=== PATIENT | female | born 1965 | race Caucasian/White ===

== ENCOUNTER 2017-02-13 08:28 | Emergency (ER) | payer OTHER ==
[~2017-02-13] VITALS: Ht 162.6 cm; Wt 92.7 kg
[~2017-02-13 08:28] MED LIST: ALBU18HF INH; ALBU2.5V4 IH; APRE30TA2 PO; AZU500 PO; ESOM20CA28 PO; ESOM20CA39 PO; GABA800T2 PO; HYDR-3091 PO; IPRA3AMP IH; KEN25CR EXT; LISI2.5T PO; LORA2TAB PO; MAGN500T PO; METF-495 PO; NABU500T PO; PRAV40TA PO; PRE10 PO; SYMINH INHALATION; VENL75TA87 PO; medical marijuana
[2017-02-13 08:32] VITALS: BP 123/76; PULSE 71; RESP 18; O2SAT 96
--- NOTE | 2017-02-13 08:37 | ED.REPORT ---
HPI-General Illness Date of Service Feb 13, 2017 ED Provider: Avelino Araujo MD Pt is a 51 year old female who presents to the ED with concerns for an abnormal hard lump in her left forearm that she began to notice yesterday. She reports that she noticed some swelling in her arm as well, and is worried about a possible blood clot. Pt states that her mother has a history of blood clots the patient denies any personal history thereof. She denies any chest pain, shortness of breath, numbness, weakness or tingling. She thinks she may have had some bug bites in the area. She states that "I just want someone to take a look at it and only if it looks like a blood clot". Nursing Notes Stated Complaint: POSS BLOOD CLOTS IN LEFT ARM Chief Complaint: Extremity Trauma Nursing Notes Reviewed: Yes Allergies: Coded Allergies: ketamine (Verified Allergy, Severe, 06/24/15) Scheduled Apremilast (Otezla) 30 Mg Tablet 30 MG PO BID Budesonide/Formoterol 160-4.5 mcg Inh (Symbicort 160-4.5 mcg Inh) 120 Puff Inhaler 2 PUFF INHALATION BID Esomeprazole Magnesium (Nexium) 20 Mg Capsule.dr 20 MG PO DAILY Esomeprazole Magnesium (Esomeprazole Magnesium) 20 Mg Capsule.dr 22.3 MG PO DAILY Gabapentin (Gabapentin) 800 Mg Tablet 800 MG PO BID Lisinopril (Lisinopril) 2.5 Mg Tablet 2.5 MG PO DAILY Metformin ER (Metformin ER) 500 Mg Tablet 500 MG PO BID Nabumetone (Nabumetone) 500 Mg Tablet 500 MG PO BID Pravastatin (Pravastatin) 40 Mg Tablet 40 MG PO DAILY Prednisone (PredniSONE) 10 Mg Tablet 20 MG PO every other day Prednisone (PredniSONE) 10 Mg Tablet 25 MG PO every other day Sulfasalazine (Sulfasalazine) 500 Mg Tablet 1,000 MG PO BID Venlafaxine ER (Venlafaxine ER) 75 Mg Tab.er.24 75 MG PO HS Scheduled PRN ([medical marijuana]) DAILY PRN PRN prn Albuterol Neb Soln (Albuterol Neb Soln) 2.5 Mg/3 Ml Vial.neb 2.5 MG IH Q2-4H PRN PRN For Wheezing Albuterol Sulfate (Ventolin HFA Inhaler) 200 Puff/18 Gm Inhaler 2 PUFF INH Q4WA PRN PRN For Wheezing one puff every 20 minutes prn wheezing. Hydrocodone-Acetaminophen 7.5-300 mg (Hydrocodone-Acetaminophen 7.5-300 mg) 1 Each Tablet 1 EACH PO Q6 HOURS PRN PRN For Pain Ipratropium/Albuterol Sulfate (Iprat-Albut 0.5-3(2.5) mg/3 mL Inhalant Soln) 3 Ml Ampul.neb 3 ML IH Q2-4H PRN PRN For Wheezing Lorazepam (Lorazepam) 2 Mg Tablet 2 MG PO HS PRN PRN For Insomnia Triamcinolone Acet (Triamcinolone Acetonide Cream) 1 Applic/0.25 Gm Cr 1 APPLIC EXT BID PRN PRN rash Miscellaneous Medications Magnesium Oxide (Magnesium Oxide) 500 Mg Tablet 500 MG PO General Time Seen by MD: 08:36 Chief Complaint Other Hx Obtained From: Patient Arrived By: Walk-in Sudden in Onset?: Yes Onset Occurred: Yesterday Symptom Duration: Since onset Location: : Arm left Quality: Painful Severity: Current: Mild Severity: Maximum: Mild Similar Sx Previous: Yes Past Medical History Past Medical History 1. Recurrent episodes of acute hypoxic respiratory failure. 2. Severe asthma/COPD. 3. Tussive-induced syncopal episodes. 4. Obstructive sleep apnea, on home CPAP. 5. Obesity. 6. Dyslipidemia. 7. Fibromyalgia. 8. Rheumatoid arthritis. 9. History of MRSA pneumonia. 10. History of pneumothorax. 11. Klebsiella pneumoniae. 12. Diverticulitis with perforation, treated medically. 13. Asthma 14. Seizures 15. Depression 15. 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 Past Surgical History Tracheostomy Chest tube for pneumothorax Percutaneous gastrostomy tube Lung surgery Appendectomy Elbow surgery Family History Noncontributory Smoking History Current Every Day Smoker Social History Alcohol Use: Denies alcohol use Drug Use: THC Other Social History: Lives alone Ambulatory Status Independent Review of Systems Full Review of Systems Constitutional: Denies: Chills, Fever, Malaise, Weakness - generalized Respiratory: Denies: Non-productive cough, Shortness of breath, Wheezing Cardiovascular: Denies: Chest pain, Syncope GI: Denies: Abdominal pain, Constipation, Diarrhea, Nausea, Vomiting Female: Denies: Dysuria, Flank pain Musculoskeletal: Reports: Extremity pain Neurologic: Denies: Change LOC, Dizziness, Headache, Syncope, Weakness Complete sys rev & neg: except as marked. Physical Exam Vital Signs Vital Signs Date Time Temp Pulse Resp B/P Pulse Ox O2 Delivery O2 Flow Rate FiO2 02/13/17 08:32 36.2 71 18 123/76 96 Room Air Initial VS: Reviewed General/Constitutional: Well-developed, Well-nourished Head / Eyes: Atraumatic, Normocephalic, PERRL ENT: Mucous membranes moist, Conjunctiva normal, No scleral icterus Neck: Supple, Non-tender, Full range of motion Respiratory: Breath sounds normal, Clear to auscultation, No respiratory distress Cardiovascular: Regular rate & rhythm, Heart sounds normal, Intact distal pulses Abdomen / GI: Soft, Non-tender, No guarding, No rebound, No distention Skin: Warm, Dry, No cyanosis Neurologic: Alert, Oriented, Nonfocal Upper Extremities Upper Extremity / MS: Atraumatic, Inspection NL Good distal pulses Skin is warm and well perfused Small 5mm region of nodularity about the ulnar aspect of the left forearm Mild erythema, no redness, warmth or swelling present Re-Eval/Medical Decision Med Decision/Clinical Course Pt is a 51 year old female who presents to the ED with concerns for an abnormal hard lump in her left forearm that she began to notice yesterday. She reports that she noticed some swelling in her arm as well, and is worried about a possible blood clot. Pt states that her mother has a history of blood clots the patient denies any personal history thereof. She denies any chest pain, shortness of breath, numbness, weakness or tingling. She thinks she may have had some bug bites in the area. She states that "I just want someone to take a look at it and only if it looks like a blood clot". Here in the emergency department the patient is afebrile, hemodynamically stable and in no apparent distress. She has a tiny erythematous nodule about her forearm that is not consistent in appearance with DVT. The forearm is not swollen, red or warm. She is neurovascularly intact. There is no evidence of abscess or cellulitis. I am not sure what caused this tiny nodule but I am not particularly concerned about it either. It may be that she simply had a bug bite in that region and is expressing some mild localized irritation. Stares at my recommendation is for watchful waiting. She will apply ice pack to the region and if it is worsened or not resolved she will follow up about it further. We discussed signs and symptoms of DVT and we are reassured that this is not reflected thereof. I do not feel that ultrasound is indicated at this moment. Prior to discharge follow-up and return precautions were reviewed in detail with the patient who verbalized understanding and agreement with the plan. The patient was discharged in stable condition. Source of Hx: Old records Time of Eval: 09:17 Re-Evaluation/Progress Note: Pt is rechecked and informed of her diagnosis and the plan to discharge her at this time. She understands and agrees, all questions are addressed. Counseled Regarding: Diagnosis, When/why to return to ED Discharge & Departure Primary Impression: Forearm pain Laterality: left Qualified Code: M79.632 - Pain in left forearm Additional Impression: Forearm swelling Disposition: Home Discharge Condition All VS Reviewed: Yes Condition: Stable Additional Instructions: Thank you for seeking care at the emergency room. It is difficult for us to make definitive diagnoses in the ED but we believe that you are experiencing a mild irritation of your forearm. Our primary goal today in the ED was to evaluate you for any life-threatening conditions. Your evaluation was reassuring. You should follow-up with your primary doctor in the next week. You should return to the ED immediately if you develop any fevers, vomiting, cough, shortness of breath, chest pain, lightheadedness, weakness or any other concerning signs or symptoms. Thank you for letting us partake in your care today. Referrals: Roderick Johnson DO (PCP) [facility] Attestation Portions of this note were transcribed by Ruby Gama. I, Dr. Araujo personally performed the history, physical exam and medical decision-making; I reviewed and confirmed the accuracy of the information in the transcribed note. Signed by: Harley Miller, 02/13/2017 08:57 copies to: Roderick Johnson Beck O MD Feb 13, 2017 08:37 MARCOS GAMA Feb 13, 2017 08:57
== END 2017-02-13 09:22 | disposition home or self-care (01) ==
LOC: SED 08:28
DX: M79.632 Pain in left forearm (principal); M79.89 Other specified soft tissue disorders; K21.9 Gastro-esophageal reflux disease without esophagitis; E78.5 Hyperlipidemia, unspecified; F17.200 Nicotine dependence, unspecified, uncomplicated; Z79.84 Long term (current) use of oral hypoglycemic drugs; Z88.8 Allergy status to other drugs, medicaments and biological substances; Z79.899 Other long term (current) drug therapy